=== PATIENT | male | born 1960 | race Caucasian/White ===

== ENCOUNTER 2019-03-15 15:02 | Outpatient (CLI) | payer OTHER ==
--- NOTE | 2019-03-16 11:34 | MRI Report ---
Reason: RT HIP PAIN Procedure Date: 03/15/2019 Accession Number: [id number] / [id number] Procedure: MRI - Hip RT W/O CPT Code: FULL RESULT: EXAM: RIGHT HIP MRI WITHOUT CONTRAST EXAM DATE: 03/15/2019 04:11 PM. CLINICAL HISTORY: Right hip pain. Patient reports injury years ago. No surgery. Pain. COMPARISON: None. TECHNIQUE: Multiplanar, multisequence T1-weighted and fluid-sensitive, small ovoxy-sw-alel sequences of the hip and large pfgcg-pj-rhya sequences of the pelvis without contrast. Other: None. FINDINGS: Bones: No fractures or subluxations. No marrow edema or bone lesions. Right Hip: No acetabular retroversion. Femoral head/neck offset is within normal limits. Minimal joint effusion. Mild thickening of the anterior lateral joint capsule. Ligamentum teres intact. Diffuse shallow partial-thickness cartilage loss. Mild blunting and degenerative fraying throughout the labrum. Subtle undersurface tear posterior inferior aspect. Other Joints: Mild degenerative disk and facet changes partially visualized lower lumbar spine. Small central protrusion with annular tear partially visualized at L4-L5. Mild to moderate degenerative changes of the sacroiliac joints with bridging osteophytes anteriorly. Pubic symphysis unremarkable. Minimal joint fluid at the partially visualized left hip. Limited evaluation of the cartilage and labrum on these ron of view. Musculature: Mild fatty atrophy posterior paraspinous and bilateral gluteal muscles. No gross edema. Mild bilateral gluteus minimus and medius tendinopathy with partial-thickness tears at the gluteus medius tendons. Mild edema in the greater trochanteric bursae. Mild tendinopathy bilateral hamstring origins. The ischiofemoral space is normal. Pelvic Cavity: The visualized viscera are unremarkable. No lymphadenopathy. No free fluid in the pelvis. Small fat-containing left inguinal hernia. Other: The visualized sciatic nerves are unremarkable. The subcutaneous tissues are unremarkable. IMPRESSION: 1. Degenerative fraying throughout the right labrum. Subtle undersurface tear posterior inferior aspect. 2. Minimal degenerative changes right hip with minimal joint effusion. 3. Mild bilateral gluteus minimus and medius tendinopathy with partial-thickness tears of the gluteus medius tendons. 4. Mild bilateral hamstring tendinopathy. 5. Mild to moderate sacroiliac degenerative changes. 6. Mild degenerative changes partially visualized lower lumbar spine including small central disk protrusion and annular tear at L4-L5. RADIA
== END 2019-03-15 15:03 | disposition home or self-care (01) ==
LOC: DI 15:02
PROVIDERS: ATTEND Family Medicine
DX: S73.191A Other sprain of right hip, initial encounter (principal); M16.11 Unilateral primary osteoarthritis, right hip; S76.012A Strain of muscle, fascia and tendon of left hip, initial encounter; S76.011A Strain of muscle, fascia and tendon of right hip, initial encounter; M67.951 Unspecified disorder of synovium and tendon, right thigh; M47.898 Other spondylosis, sacral and sacrococcygeal region; M51.26 Other intervertebral disc displacement, lumbar region

== ENCOUNTER 2019-04-14 08:01 | Day surgery (SDC) | payer OTHER ==
[2019-04-14] MEDS ORDERED: LACTATED RINGERS 1,000 ML IV ONE (08:39)
[2019-04-14] MEDS ORDERED: MIDAZOLAM 2 MG/2 ML VIAL IVP ONE (09:58)
[2019-04-14] MEDS ORDERED: fentaNYL 100 MCG/2 ML VIAL IVP ONE (09:58)
[2019-04-14 11:04] VITALS: BP 112/68
== END 2019-04-14 08:02 | disposition home or self-care (01) ==
LOC: SDS 08:01
PROVIDERS: ATTEND Surgery
PROC: 0DJD8ZZ Inspection of Lower Intestinal Tract, Via Natural or Artificial Opening Endoscopic (ICD-10-PCS; principal; 2019-04-14 10:15)
DX: Z12.11 Encounter for screening for malignant neoplasm of colon (principal); K64.8 Other hemorrhoids; I10 Essential (primary) hypertension; Z79.899 Other long term (current) drug therapy
CPT/HCPCS: 45378; J7120

== ENCOUNTER 2021-08-08 09:07 | Emergency (ER) | payer OTHER ==
[2021-08-08 09:17] VITALS: BP 152/80
[2021-08-08] MEDS ORDERED: INDOMETHACIN 25 MG CAPSULE PO STA (09:49)
[2021-08-08] MEDS ORDERED: COLCHICINE 0.6 MG TABLET PO STA (09:49)
[2021-08-08] MEDS ORDERED: oxyCODONE 5 MG TABLET PO STA (09:49)
--- NOTE | 2021-08-08 09:54 | ED Physician Documentation ---
PD HPI LOWER EXT INJURY - Stated complaint Stated Complaint: LT KNEE SWELLING - Chief complaint Chief Complaint: Ext Problem - History obtained from History obtained from: Patient - History of Present Illness PD HPI LOW EXT INJURY LOCATION: Left, Knee Type of injury: No: Fall, Twist Where injury occurred: Home (was traveling and flew back on Thursday, noting onset of pain left knee Thursday (4 days ago).) Timing - onset: How many days ago (4) Timing - duration: Days (4) Worsened by: Moving, Palpating (anteriorly mostly) Associated symptoms: No: Weakness, Numbness Contributing factors: No: Anticoagulated, Prior ortho surgery Similar symptoms before: Has not had sx before (has had gout in foot/toe, but not in knee.) Recently seen: Not recently seen Review of Systems Constitutional: denies: Fever, Chills Nose: denies: Rhinorrhea / runny nose, Congestion Throat: denies: Sore throat Respiratory: denies: Cough Skin: denies: Rash, Abrasion (s), Laceration (s) Neurologic: denies: Focal weakness, Numbness PD PAST MEDICAL HISTORY - Past Medical History Cardiovascular: Hypertension Respiratory: Sleep apnea, CPAP use Endocrine/Autoimmune: None GI: None : None HEENT: None Psych: None Musculoskeletal: Gout Derm: None - Past Surgical History General: Colonoscopy - Present Medications Home Medications: Ambulatory Orders Medication Instructions Recorded Confirmed allopurinoL [Allopurinol] 300 mg PO DAILY 06/02/14 08/08/21 lisinopriL [Lisinopril] 10 mg PO DAILY 06/02/14 08/08/21 Atorvastatin [Lipitor] 10 mg PO DAILY 04/13/19 08/08/21 Colchicine 0.6 mg PO DAILY #10 tablet 08/08/21 Indomethacin [Indocin] 25 mg PO BIDWM 7 Days #14 cap 08/08/21 oxyCODONE [Roxicodone] 5 mg PO Q6H PRN #12 tablet 08/08/21 - Allergies Allergies/Adverse Reactions: Allergies Allergy/AdvReac Type Severity Reaction Status Date / Time No Known Drug Allergies Allergy Verified 08/08/21 09:17 PD ED PE NORMAL - Vitals Vital signs reviewed: Yes - General General: Alert and oriented X 3, No acute distress, Well developed/nourished - Derm Derm: Normal color, Warm and dry, No rash - Extremities Extremities: No edema, No calf tenderness / cord, Other (knee anteriorly is warm and swollen with mild effusion. No pain nor laxity with collateral nor cruciate stress testing. Impaction and rotation with some pain but no clicking. Full extension but does hurt some. ) - Neuro Neuro: Alert and oriented X 3, No motor deficit, No sensory deficit Results - Vitals Vitals: Oxygen O2 Source Room air PD MEDICAL DECISION MAKING - ED course Complexity details: considered differential (seems likely to be gout in the knee, but consider some tendonitis quads tendon. ), d/w patient Departure - Departure Disposition: 01 Home, Self Care Clinical Impression: Left knee pain Qualifiers: Chronicity: acute Qualified Code(s): M25.562 - Pain in left knee Gout attack Qualifiers: Gout site: knee Gout etiology: unspecified cause Laterality: left Qualified Code(s): M10.9 - Gout, unspecified Condition: Stable Record reviewed to determine appropriate education?: Yes Instructions: ED Arthritis Gout Prescriptions: Colchicine 0.6 mg PO DAILY #10 tablet Indomethacin [Indocin] 25 mg PO BIDWM 7 Days #14 cap oxyCODONE [Roxicodone] 5 mg PO Q6H PRN #12 tablet PRN Reason: Pain Comments: Good. Activity as tolerated. You could try loose Jayce wrap over the knee to see if helps with the swelling. Not too tight so does not cause tenderness. This sounds likely to be a gout attack. We will treat this with anti- inflammatories of indomethacin twice daily with food for the next several days to a week. Also colchicine tablet twice today and then once daily for the next several days until this is improved. Add Tylenol every 4-6 hours if needed for pain and to that add oxycodone every 6 hours if needed for worse pain. I would anticipate improvement over the next few days and resolved by 3 to 5 days. I transmitted your prescriptions to [facility] pharmacy in [place]. I am prescribing a short course of narcotic pain medication for you. These are potentially dangerous and addictive medications that should be used carefully. These medications may constipate you. Take an iacu-ube-fexlady stool softener such as docusate twice daily with plenty of water while taking these medications. If you go 24 hours without a bowel movement, take ijbi-rze-hdvsntz MiraLAX, per package instructions. Do not drink or drive while taking these medications. If you received narcotic or sedating medications while in the emergency department do not drive for 24 hours. Store this medication in a safe, secure p lace and out of reach of children. It is a violation of federal law to give or sell this medication to another person or to use in a manner other than prescribed. The ED will not refill narcotic prescriptions, including prescriptions lost or stolen. You can dispose of unwanted medications at the [facility]'s office or at several pharmacies such as [facility]. Discharge Date/Time: 08/08/21 10:24
== END 2021-08-08 10:24 | disposition home or self-care (01) ==
LOC: ED 09:07
DX: M25.562 Pain in left knee (principal); M10.9 Gout, unspecified; I10 Essential (primary) hypertension
CPT/HCPCS: 99283; A9270

== ENCOUNTER 2023-05-07 08:54 | Outpatient (CLI) | payer OTHER ==
--- NOTE | 2023-05-07 09:51 | Sleep Patient Instructions ---
Sleep Center Visit Summary - Patient Visit Information Reason for Visit: Initial consultation - Patient Instructions Instructions Attached: Sleep Study Additional Instructions: You will be completing a sleep study, either an in-lab polysomnography (PSG) or home sleep study (HST). You will follow-up in the sleep care office after the sleep study is completed to hear the results and talk about therapy, if needed. You will be called by our office staff to schedule this appointment, but you may contact us with any questions. - Clinic Information Contact: [facility] [address] [place] [id number] [email or web address] T: [phone]
--- NOTE | 2023-05-07 09:56 | SLEEP CARE CONSULTATION ---
Information from patient questionnaire entered by Una Isabel. I have reviewed and concur with the information entered by Una Isabel. This document represents the service I personally performed and the decisions made by me, Ally Kamara ARNP. History of Present Illness Service Date and Time: 05/07/2023 0854 Reason for Visit: New patient, Previously diagnosed sleep apnea, sleep apnea on CPAP therapy Chief Complaint: reports: Unrefreshed sleep, Snoring, Observed pauses in breathing, Fatigue, Frequent awakenings at night Date of Onset: Since my CPAP stopped working Usual bedtime: 9 PM Time it takes to fall asleep: 15 min Snores at night: Yes Observed to quit breathing while asleep: Yes Sleeps alone due to snoring: No Number of times waking at night: 4-6 Reasons for waking at night: reports: Other (Unknown reason) Toss, Turn, or Twitch while sleeping: Yes Recalls having dreams: Yes Usually gets out of bed at: 5 AM Feels refreshed in the morning: No Morning headache: Yes (Sometimes) Sleepy or fatigued during the day: No Ever fallen asleep while driving: No Takes day naps: No Dreams during day naps: No (N/A) Prior sleep studies: Yes Year and Where: 2004 [facility] Type of Sleep Study: Polysomnography Additional HPI information: MULU PINON was previously diagnosed to have mild, AHI 11.7, obstructive sleep apnea-hypopnea syndrome as seen in sleep study dated 11/27/2004 at [facility] and comes in today to establish care for CPAP therapy. His CPAP quit working over 6 months ago. - Parasomnia Symptoms Ever been unable to move upon waking from sleep: No Walks in sleep: No Talks in sleep: Yes Ever acted out dreams in sleep: No Ever felt weak in the knees when startled or emotional: No Bothered by creepy, crawly, restless sensations in legs: No Problems with memory or concentration: No CPAP Compliance Data Compliance data discussion: He was getting supplies from [employer]. He used a full face mask. His machine stopped working over 6 months ago. Subjective On therapy, patient: reports: sleeping better, more rested overall. 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 Patient is and lives in [place]. Have you smoked in the past 12 months: No Alcohol use: No Caffeine use: Yes Caffeine amount and frequency: 1 cup through the morning Family History Family history of sleep disordered breathing: Yes Family Hx Sleep Apnea: Mother: Snoring Allergies and Home Medications Known drug allergies: No Drug allergies reviewed: Yes Home medication list reviewed: Yes Allergy and home medication list: Allergies No Known Drug Allergies Allergy (Verified 05/06/23 08:56) Medications: Diclofenac 1% gel Allopurinol 300 mg Atorvastatin 20 mg HCTZ 20 mg Prednisone 20 mg, for gout flare Aspirin 81 mg Review of Systems Weight gain over past 5 years: 5 Weight loss over past 5 years: 5 Cardiovascular: reports: high blood pressure Respiratory: reports: shortness of breath Gastrointestinal: denies: heartburn Neurological: denies: headaches Ear/Nose/Throat: denies: tonsillectomy Musculoskeletal: reports: joint pain (stiffness) Immunologic: reports: allergies to food or environment Physical Exam Vital signs obtained and entered by: Ally Barba NP Blood Pressure: 156/93 Cuff size: wrist (right) Heart Rate: 69 O2 Saturation: 96 Height: 6 ft 2 in Weight: 256 lb 9.6 oz Body Mass Index: 32.9 BMI Classification: Obese Neck circumference: 18 Mouth and throat: normal Soft palate: long Hard palate: normal Uvula: normal Uvula visualization: 50% Mallampati Class II Tongue: enlarged in size with teeth perez on lateral edges Tonsils: 1+ Heart: regular rate and rhythm Lungs: clear bilaterally Impression and Plan 1. Obstructive Sleep Apnea-Hypopnea Syndrome, mild. On CPAP therapy, the patient has better sleep quality and is more rested overall. Patient's machine broke over 6 months ago and he has not been able to use his CPAP. His last sleep study was in 2004. I would like to have him do another sleep study to reverify diagnosis and severity, get a new baseline. I obtained agreement to proceed. The pathophysiology of obstructive sleep apnea-hypopnea syndrome was discussed with the patient and health risks of cardiovascular and cerebrovascular disease if not treated. Risks of drowsy driving discussed in detail and patient advised to avoid long distance driving and to nail puller at the first sign of drowsiness. Patient agreed to plan. Patient has a history of hypertension and asthma. 2. Obesity, unspecified. Currently patients BMI is 32.9. Obesity increases the risk of apnea, CPAP pressure requirements and overall health risks especially cardiovascular and diabetes. Thus patient is advised to lose weight. * PSG to re-verify diagnosis and severity * Attempt to lose weight * Call this office if any problems * Return for follow up after sleep study, or sooner if concerns arise Counseling Topics: Weight loss health impact Plan: PSG/HST Visit Type: In Office Patient Location: Office Location of Provider: Office Time Spent with Patient (minutes): 30 Provider Statement: I spent 100% of the Face to Face Visit with the patient with greater than 50% spent counseling the patient and coordination of care.
[2023-05-07 10:01] VITALS: BP 156/93; O2SAT 96
== END 2023-05-07 08:55 | disposition home or self-care (01) ==
LOC: SC 08:54
PROVIDERS: ATTEND Nurse Practitioner Family
DX: G47.33 Obstructive sleep apnea (adult) (pediatric) (principal); E66.9 Obesity, unspecified; Z68.32 Body mass index [BMI] 32.0-32.9, adult
CPT/HCPCS: 99203; 99212

== ENCOUNTER 2023-06-05 19:44 | Outpatient (CLI) | payer OTHER | END 2023-06-05 19:45 | disposition home or self-care (01) | LOC: SC 19:44 | PROVIDERS: ATTEND Nurse Practitioner Family | DX: G47.33 Obstructive sleep apnea (adult) (pediatric) (principal); E66.9 Obesity, unspecified; Z68.33 Body mass index [BMI] 33.0-33.9, adult | CPT/HCPCS: 95810 ==

== ENCOUNTER 2023-07-02 08:00 | Outpatient (CLI) | payer OTHER ==
--- NOTE | 2023-07-02 16:39 | XRAY Report ---
PROCEDURE: Knee 4 View LT INDICATIONS: LEFT KNEE PAIN TECHNIQUE: 4 views of the knee(s) were acquired. COMPARISON: X-ray knee 03/09/2023 FINDINGS: Bones: No fractures or dislocations. No suspicious bony lesions. There is unchanged appearance of mild to moderate bilateral arthritic change, tricompartmental on the left and bicompartmental on the right. Particular osteophytes are present. No erosions. Soft tissues: Mild left knee joint effusion. No suspicious soft tissue calcifications or masses. IMPRESSION: Stable appearance of tricompartmental left and bicompartmental right arthritic change. Reviewed by: Indy Calabrese MD on 07/02/2023 4:37 PM PST Approved by: Indy Calabrese MD on 07/02/2023 4:37 PM PST Station ID: [id number]
== END 2023-07-02 23:59 | disposition home or self-care (01) ==
LOC: DI.WOS 08:00
PROVIDERS: ATTEND Orthopaedic Surgery
DX: M17.0 Bilateral primary osteoarthritis of knee (principal)

== ENCOUNTER 2023-07-03 14:28 | Outpatient (CLI) | payer OTHER ==
--- NOTE | 2023-07-03 15:08 | Sleep Patient Instructions ---
Sleep Center Visit Summary - Patient Visit Information Reason for Visit: Sleep study followup - Patient Instructions Additional Instructions: You are being started on CPAP therapy with pressure setting at 4-15 cmH2O. You will need to call the sleep care office to set up your follow up once you have your APAP machine and we will schedule a visit to check compliance and response to therapy at that time. You may call the office with any concerns about pressure feeling too low or too much for adjustment, if needed. You should contact DME supplier for any questions or concerns about mask or equipment. Please call office to schedule a follow up appointment in the sleep care office one month after obtaining new device. - Clinic Information Contact: [facility] [address] [place] [address] [email or web address] T: [phone]
--- NOTE | 2023-07-03 15:15 | SLEEP CARE CONSULTATION ---
Information from patient questionnaire entered by Eladia March. I have reviewed and concur with the information entered by Eladia March. This document represents the service I personally performed and the decisions made by , Ally Kamara ARNP. History of Present Illness Service Date and Time: 07/03/20231427 Initial [place] Sleepiness Scale score: 4 (in 2022) Current [place] Sleepiness Scale score: 6 (07/03/23) Additional HPI information: MULU PINON returns for follow up and results of the recently performed polysomnography. The sleep study showed moderate obstructive sleep apnea with an average AHI of 20.6 and jazzy oxygen saturation of 76%. I explained the pathophysiology behind obstructive sleep apnea. We then spent quite a bit of time discussing different treatment options. For mild obstructive sleep apnea, surgery and oral appliance are alternatives to nasal CPAP therapy but in moderate or severe cases, nasal CPAP is the most effective and reliable treatment. Because apnea is primarily in supine position, then positional management therapy could be effective. Methods discussed such as positioning with pillows, using a T-shirt with tennis balls in the back or commercial products that have a pillow format on back to prevent supine sleep. I reviewed the impact of weight changes on sleep apnea and strongly recommended losing weight. The patient will continue with the nasal autoCPAP set at 4-15 cmH20. We will order him a new machine since his last one is no longer working. The patient was instructed to call the CPAP supplier to discuss any mechanical problem that may occur. If snoring or perceives is not getting enough air or too much air from the machine, notify this office. Patient was cautioned about risks of drowsy driving until sleepiness symptoms resolve. Sleep Study - Results Type of Sleep Study: Polysomnography (COMPLETED 06/05/23) Prior sleep studies: Yes Year and Where: [address] [place] [address] Polysomnography/Home Sleep Study results: IMPRESSION: The quality of the study is good. The patient had normal sleep efficiency. The sleep architecture was abnormal for sleep fragmentation and reduced amount of time spent in slow wave sleep (N3). Respiratory monitoring showed moderate obstructive sleep apnea-hypopnea (AHI = 20.6) associated with frequent arousals, oxyhemoglobin desaturation and moderate hypoxia (jazzy oxygen saturation of 76 %). Baseline oxygen saturation was normal. The respiratory events occurred predominantly during supine sleep (supine AHI = 27.2; non-supine = 6.29). Snore was light to loud in intensity. There was no significant periodic leg movement of sleep. Cardiac rhythm was normal sinus rhythm with occasional premature ventricular contra ctions in bigeminy. No abnormal behavior (parasomnia) observed during the night. Allergies and Home Medications Known drug allergies: No Drug allergies reviewed: Yes Home medication list reviewed: Yes (no changes) Allergy and home medication list: Allergies No Known Drug Allergies Allergy Review of Systems Review of systems same as previous: Yes (NO CHANGE) Physical Exam Vital signs obtained and entered by: ELADIA Patino MA Blood Pressure: 141/100 (LEFT ARM) Cuff size: regular Heart Rate: 87 O2 Saturation: 99 Height: 6 ft 2 in Weight: 251 lb 12.8 oz Body Mass Index: 32.3 BMI Classification: Obese Impression and Plan 1. Obstructive Sleep Apnea-Hypopnea Syndrome, moderate, with lowest oxygen saturation of 76%. Obviously this is the cause of the patients symptoms of unrefreshed sleep, and excessive daytime sleepiness. Positive pressure therapy could benefit hypertension and asthma. As mentioned above, the patient will be continued on nasal autoCPAP therapy with pressure set at 4-15 cmH2O since we could not obtain his last CPAP pressure settings. Compliance guidelines also reviewed. A copy of compliance guidelines will be given for reference at check out. Because the apnea is more severe supine, I instructed to avoid sleeping supine using pillow positioning until able to start CPAP use. He voiced un derstanding. 2. Hypoxemia, moderate, with a jazzy oxygen saturation of 76% and 15.3 minutes spent under 90%. The baseline oxygen saturation was normal with an average oxygen saturation of 94%. 3. Obesity, unspecified. Currently patients BMI is 32.3. Obesity increases the risk of apnea, CPAP pressure requirements and overall health risks especially cardiovascular and diabetes. Thus patient is advised to lose weight. * Nasal auto CPAP therapy, pressure at 4-15 cm H2O. * Attempt to lose weight. * Avoid alcohol consumption near bedtime. * Avoid supine sleep until using CPAP. * The patient is again cautioned about driving until sleepiness completely resolves. * Return one month after CPAP obtained. I will assess response to therapy and compliance at that time. Counseling Topics: Sleeping position, Weight loss health impact Prescriptions: Auto CPAP, Device supplies Follow up with Sleep Care in: 1-2 months Visit Type: In Office Time Spent with Patient (minutes): 21 Provider Statement: I spent 100% of the Face to Face Visit with the patient with greater than 50% spent counseling the patient and coordination of care.
[2023-07-03 15:45] VITALS: BP 141/100; O2SAT 99
== END 2023-07-03 14:29 | disposition home or self-care (01) ==
LOC: SC 14:28
PROVIDERS: ATTEND Nurse Practitioner Family
DX: G47.33 Obstructive sleep apnea (adult) (pediatric) (principal); R09.02 Hypoxemia; E66.9 Obesity, unspecified; Z68.32 Body mass index [BMI] 32.0-32.9, adult
CPT/HCPCS: 99212; 99213

== ENCOUNTER 2023-07-17 11:51 | Outpatient (CLI) | payer OTHER ==
--- NOTE | 2023-07-17 12:27 | XRAY Report ---
PROCEDURE: Chest 2V INDICATIONS: CHEST PAIN TECHNIQUE: 2 views of the chest were acquired. COMPARISON: None. FINDINGS: Surgical changes and devices: None. Lungs and pleura: No pleural effusions or pneumothorax. Lungs are clear. Mediastinum: Mediastinal contours appear normal. Heart size is normal. Bones and chest wall: DISH changes of the visualized thoracic spine. Overlying soft tissues appear u nremarkable. IMPRESSION: No acute cardiopulmonary process. Reviewed by: Jed Canas MD on 07/17/2023 12:26 PM PST Approved by: Jed Canas MD on 07/17/2023 12:26 PM PST Station ID: [id number]
== END 2023-07-17 11:52 | disposition home or self-care (01) ==
LOC: DI 11:51
PROVIDERS: ATTEND Nurse Practitioner
DX: R07.9 Chest pain, unspecified (principal)

== ENCOUNTER 2024-02-16 15:10 | Outpatient (CLI) | payer OTHER ==
--- NOTE | 2024-02-16 15:52 | Sleep Patient Instructions ---
Sleep Center Visit Summary - Patient Visit Information Reason for Visit: First compliance follow-up for PAP therapy - Patient Instructions Additional Instructions: You were here for follow up of CPAP therapy. You will be continued on CPAP therapy with pressure at 4-15 cmH2O. You should follow up with sleep care in 1-2 months. You may contact us sooner for any questions or concerns. - Clinic Information Contact: [facility] [address] [place] [id number] [email or web address] T: [phone]
[2024-02-16 15:56] VITALS: BP 145/85; O2SAT 98
--- NOTE | 2024-02-16 15:56 | SLEEP CARE CONSULTATION ---
Information from patient questionnaire entered by Una Isabel. I have reviewed and concur with the information entered by Una Isabel. This document represents the service I personally performed and the decisions made by , Ally Kamara ARNP. History of Present Illness Service Date and Time: 02/16/2024 1510 Previous diagnosis: Moderate, Obstructive Sleep Apnea-Hypopnea Syndrome AHI: 20.6 (06/05/23) Reason for follow up: first compliance (Set up 09/22/23) Equipment type: CPAP (Airsense 11, s/u 09/22/23) Equipment obtained from: Other ([facility]; getting supplies) Mask style: Nasal Backup mask available: Yes Last cushion change: weekly Prior sleep studies: Yes Year and Where: [address] Type of Sleep Study: Polysomnography (COMPLETED 06/05/23) HPI additional information: MULU PINON was diagnosed to have moderate, AHI 20.6, obstructive sleep apnea-hypopnea syndrome and returned today for CPAP therapy first compliance follow-up. Sleep Study - Results Type of Sleep Study: Polysomnography (COMPLETED 06/05/23) Prior sleep studies: Yes Year and Where: [address] CPAP Compliance Data - Data Reviewed with Patient Average duration of nightly device use: 4 h 52 min Compliance rate %: 70 (11/20/23-12/19/23; 43% in last 30 days) Current pressure setting (cmH2O): 4 - 15 (median 10.3, avg 13.7, max 14.4) Average residual AHI: 0.6 Central apnea: 0.1 Obstructive apnea: 0.3 Hypopnea: 0.3 Average large leak: 6.9 L/min Subjective Missed days of use due to: reports: travel, other (Power outages) Patient concerns: reports: mask discomfort (mask shifts sometimes and leaks), dry mouth, nose, throat (dry mouth, oral venting ). denies: aerophagia, air blowing in eyes, mask leak noise, condensation in mask/hose, nasal congestion, epistaxis Observed to snore while using device: No Current pressure setting perceived as: comfortable On therapy, patient: reports: other (did feel improvement at first but not recently, getting 4-5 hours consistently). denies: drowsiness while driving Initial [place] Sleepiness Scale score: 4 (in 2022) Current [place] Sleepiness Scale score: 3 (in 2023) Allergies and Home Medications Known drug allergies: No Drug allergies reviewed: Yes Home medication list reviewed: Yes (no changes) Allergy and home medication list: Allergies No Known Drug Allergies Allergy Review of Systems Review of systems same as previous: Yes (no changes) Physical Exam Vital signs obtained and entered by: Ally Barba NP Blood Pressure: 145/85 Cuff size: long (left arm) Heart Rate: 56 O2 Saturation: 98 Height: 6 ft 2 in Weight: 253 lb 9.6 oz Body Mass Index: 32.5 BMI Classification: Obese Impression and Plan 1. Obstructive Sleep Apnea-Hypopnea Syndrome, moderate, with good treatment compliance and good apnea control. On CPAP therapy, the patient has better sleep quality and is more rested overall. He has significant proved sleep apnea and is comfortable with CPAP use. He did reach compliance in the initial period. But his compliance has decreased due to camping and power outages in the last month. He is comfortable with current pressure settings and would like them to stay at the 4-15 cmH2O. No pressure adjustments needed today. Patient's apnea severity and rationale for treatment to reduce apnea, improve sleep quality and reduce cardiovascular and cerebrovascular events was reviewed. I also reviewed the be nefit of consistent device use of CPAP for hypertension. 2. Obesity, unspecified. Currently patients BMI is 32.5. Obesity increases the risk of apnea, CPAP pressure requirements and overall health risks especially cardiovascular and diabetes. Thus patient is advised to lose weight. * Continue auto CPAP pressure at 4-15 cmH2O * Notify me if snoring with mask or feeling that the pressure is too much or too little * Attempt to lose weight * Call this office if any problems using CPAP * Return for follow up in 1-2 months, or sooner if concerns arise Counseling Topics: Spare mask, Weight loss health impact Follow up with Sleep Care in: 1-2 months Visit Type: In Office Time Spent with Patient (minutes): 28 Provider Statement: I spent 100% of the Face to Face Visit with the patient with greater than 50% spent counseling the patient and coordination of care.
== END 2024-02-16 15:11 | disposition home or self-care (01) ==
LOC: SC 15:10
PROVIDERS: ATTEND Nurse Practitioner Family
DX: G47.33 Obstructive sleep apnea (adult) (pediatric) (principal); E66.9 Obesity, unspecified; Z68.32 Body mass index [BMI] 32.0-32.9, adult
CPT/HCPCS: 99212; 99213